=== PATIENT | male | born 1995 | race Caucasian/White ===

== ENCOUNTER 2017-03-24 14:27 | Emergency (ER) | payer OTHER ==
[2017-03-24 14:31] VITALS: BP 124/61; PULSE 77; TEMP 98.1; BMI 26.6
--- NOTE | 2017-03-24 15:06 | PDOC ---
History of Present Illness - General Chief Complaint: Injury Stated Complaint: INJURED FOOT Time Seen by Provider: 03/24/17 14:34 History Source: Patient Exam Limitations: No Limitations - History of Present Illness Initial Comments: 03/24/17 15:01 21-year-old male presents to the ED status post fall 3 days ago and initially thought it was just a sprain but now patient states has developed swelling along with bruising to the side of his foot so came to the emergency room for further evaluation. Patient denies recent injury to affected area, sensory changes distally or weakness. Patient denies decreased range of motion. Patient does state difficulty ambulating secondary to pressure-like discomfort with weightbearing. Occurred: reports: other Severity: reports: mild Pain Location: reports: lower extremity Method of Injury: Yes: fall Loss of Consciousness: no loss of consciousness Associated Symptoms (Fall): trouble walking Past History - Past Medical History Allergies/Adverse Reactions: Allergies Allergy/AdvReac Type Severity Reaction Status Date / Time No Known Allergies Allergy Verified 03/24/17 14:31 Home Medications: Ambulatory Orders NK [No Known Home Medication] 03/24/17 Other medical history: NONE - Immunization History Immunization Up to Date: No - Psycho/Social/Smoking Cessation Hx Anxiety: No Suicidal Ideation: No Smoking Status: No Smoking History: Never smoked Have you smoked in the past 12 months: No Number of Cigarettes Smoked Daily: 0 Hx Alcohol Use: Yes (SOCIAL) Drug/Substance Use Hx: No Substance Use Type: None Hx Substance Use Treatment: No Patient Lives Alone: No Lives with/in: parents Review of Systems - Review of Systems Able to Perform ROS?: Yes Constitutional: No: Symptoms Reported Musculoskeletal: Yes: Joint Pain (left ankle). No: Symptoms Reported Integumentary: Yes: Bruising, Erythema Neurological: No: Symptoms reported Endocrine: No: Symptoms Reported Hematologic/Lymphatic: No: Symptoms Reported *Physical Exam - Vital Signs Last Vital Signs Temp Pulse Resp BP Pulse Ox 98.1 F 77 20 124/61 99 03/24/17 14:28 03/24/17 14:28 03/24/17 14:28 03/24/17 14:28 03/24/17 14:28 - Physical Exam General Appearance: Yes: Nourished, Appropriately Dressed. No: Apparent Distress Vascular Pulses: Doralis-Pedis (L): 2+ Extremity: positive: Normal Capillary Refill, Normal Inspection, Normal Range of Motion, Tender (lateral aspect of left malleolus), Swelling (laterally ) Integumentary: positive: Ecchymosis (lateral) Neurologic: positive: Normal Mood/Affect, Motor Strength 01/12 ED Treatment Course - RADIOLOGY Radiology Studies Ordered: Category Date Time Status ANKLE-LEFT [RAD] Stat Radiology 03/24/17 14:44 Completed Medical Decision Making - Medical Decision Making 03/24/17 14:33 Patient status post fall with left ankle injury. Patient on exam had point tenderness over the calcaneofibular ligament. Patient was unable to ambulate more than 4 feet Patient ordered for a left ankle x-ray 03/24/17 15:06 X-ray negative for acute findings. *DC/Admit/Observation/Transfer Diagnosis at time of Disposition: Ankle sprain Qualifiers: Encounter type: initial encounter Involved ligament of ankle: calcaneofibular ligament Laterality: left Qualified Code(s): S93.412A - Sprain of calcaneofibular ligament of left ankle, initial encounter - Discharge Dispostion Disposition: HOME Condition at time of disposition: Good - Patient Instructions Printed Discharge Instructions: DI for Ankle Sprain Additional Instructions: Please continue to use crutches for ambulation. Elevate when not walking. Take Tylenol Motrin for discomfort. Follow-up with your primary care physician as needed
== END 2017-03-24 15:09 | disposition home or self-care (01) ==
LOC: JERFT 14:27
DX: S93.412A Sprain of calcaneofibular ligament of left ankle, initial encounter (principal); W18.39XA Other fall on same level, initial encounter; Y93.89 Activity, other specified; Y92.89 Other specified places as the place of occurrence of the external cause
CPT/HCPCS: 73610-TC-LT; 99281-25